=== PATIENT | male | born 1985 | race Caucasian/White ===

== ENCOUNTER → 2025-02-15 10:34 | Outpatient (BNVA) | payer MEDICARE, MEDICAID, SELFPAY | PROVIDERS: Visit Provider Physician Assistant | DX: M16.12 Unilateral primary osteoarthritis, left hip (principal); M54.9 Dorsalgia, unspecified; M54.50 Low back pain, unspecified | CPT/HCPCS: 73502; 99203 ==

== ENCOUNTER 2025-03-01 05:00 | Outpatient (RCR) | payer MEDICARE, SELFPAY | END 2025-03-30 23:59 | disposition home or self-care (01) | LOC: GPT 05:00 | PROVIDERS: Visit Provider Orthopaedic Surgery | DX: M54.50 Low back pain, unspecified (principal); G89.29 Other chronic pain | CPT/HCPCS: 97110; 97112; 97140; 97162 ==

== ENCOUNTER → 2025-03-08 14:33 | Outpatient (BNVA) | payer MEDICARE, SELFPAY | PROVIDERS: Visit Provider Orthopaedic Surgery | DX: M54.50 Low back pain, unspecified (principal) | CPT/HCPCS: 72110; 99203 ==